=== PATIENT | male | born 1990 | race Caucasian/White ===

== ENCOUNTER 2022-05-10 08:12 | Emergency (ER) | payer OTHER ==
[~2022-05-10] VITALS: Ht 188 cm; Wt 133.6 kg
[2022-05-10] MEDS ORDERED: PERCOCET 5-3251 EACH PO (08:25)
[2022-05-10] MEDS ORDERED: AMOX TR-K CLV1 EAC1 PO (08:38)
== END 2022-05-10 08:49 | disposition home or self-care (01) ==
LOC: ED 08:12
DX: J32.9 Chronic sinusitis, unspecified (principal); K04.7 Periapical abscess without sinus
CPT/HCPCS: 99283

== ENCOUNTER 2022-06-16 13:53 | Emergency (ER) | payer OTHER ==
[~2022-06-16] VITALS: Ht 188 cm; Wt 133.4 kg
[~2022-06-16 13:53] MED LIST: AMOX TR-K CLV1 EAC1 PO; PERCOCET 5-3251 EACH PO
[2022-06-16] MEDS ORDERED: AZITHROMYCIN500 MG PO (19:30)
[2022-06-16] MEDS ORDERED: BENZONATATE100 MG PO (20:26)
[2022-06-16] MEDS ORDERED: MELOXICAM15 MG PO (20:27)
== END 2022-06-16 20:49 | disposition home or self-care (01) ==
LOC: ED 13:53
DX: B34.9 Viral infection, unspecified (principal); I10 Essential (primary) hypertension; Z79.899 Other long term (current) drug therapy; Z20.822 Contact with and (suspected) exposure to COVID-19
CPT/HCPCS: 87502; 99283; C9803; U0003